=== PATIENT | female | born 1995 | race Native Hawaiian/Other Pacific Islander ===

== ENCOUNTER → 2016-07-04 12:35 | Outpatient (CLI) | payer OTHER | END | disposition short-term general hospital (02) | LOC: AMB 12:35 | DX: S31.41XA Laceration without foreign body of vagina and vulva, initial encounter (principal) ==

== ENCOUNTER 2017-02-03 03:20 | Outpatient (CLI) | payer OTHER | END 2017-02-03 03:31 | disposition short-term general hospital (02) | LOC: AMB 03:20 | DX: R10.31 Right lower quadrant pain (principal) | CPT/HCPCS: A0425; A0427 ==